=== PATIENT | female | born 1995 | race Caucasian/White ===

== ENCOUNTER 2018-04-02 12:11 | Emergency (ER) | payer BC ==
[~2018-04-02] VITALS: Ht 162.6 cm; Wt 82.5 kg
[2018-04-02 12:16] VITALS: Ht 162.6 cm; Wt 82.5 kg
[2018-04-02 14:18] VITALS: BP 115/89
[2018-04-02 14:22] LABS: AMPHETAMINE QUAL UR POSITIVE (See below)
== END 2018-04-02 14:18 | disposition home or self-care (01) ==
LOC: ED 12:11
PROVIDERS: Emergency Medicine
DX: S00.03XA Contusion of scalp, initial encounter (principal); H52.10 Myopia, unspecified eye; F17.210 Nicotine dependence, cigarettes, uncomplicated; F14.20 Cocaine dependence, uncomplicated; F12.20 Cannabis dependence, uncomplicated; Z71.6 Tobacco abuse counseling; Z88.8 Allergy status to other drugs, medicaments and biological substances; W51.XXXA Accidental striking against or bumped into by another person, initial encounter; Y93.89 Activity, other specified; Y92.89 Other specified places as the place of occurrence of the external cause; Y99.8 Other external cause status
CPT/HCPCS: 99406

== ENCOUNTER 2018-04-08 13:27 | Emergency (ER) | payer BC ==
[~2018-04-08] VITALS: Ht 162.6 cm; Wt 80.7 kg
[2018-04-08 13:29] VITALS: Ht 162.6 cm; Wt 80.7 kg
[2018-04-08 14:15] VITALS: BP 120/85
== END 2018-04-08 14:15 | disposition home or self-care (01) ==
LOC: ED 13:27
DX: Z09 Encounter for follow-up examination after completed treatment for conditions other than malignant neoplasm (principal); Z02.79 Encounter for issue of other medical certificate

== ENCOUNTER 2018-07-13 08:55 | Emergency (ER) | payer BC ==
[~2018-07-13] VITALS: Ht 162.6 cm; Wt 72.6 kg
[2018-07-13 09:00] VITALS: Ht 162.6 cm; Wt 72.6 kg
[2018-07-13 10:12] VITALS: BP 120/63
== END 2018-07-13 10:13 | disposition home or self-care (01) ==
LOC: ED 08:55
DX: L03.114 Cellulitis of left upper limb (principal); F17.210 Nicotine dependence, cigarettes, uncomplicated; Z88.8 Allergy status to other drugs, medicaments and biological substances; Z91.040 Latex allergy status
CPT/HCPCS: Q0162